=== PATIENT | male | born 1960 | race Caucasian/White ===

== ENCOUNTER 2023-07-28 11:11 | Emergency (ER) | payer OTHER ==
[~2023-07-28] VITALS: Ht 175.3 cm; Wt 68.0 kg
[2023-07-28 11:26] VITALS: BP_SYST 119; PULSE 90; RESP 16; TEMP 97.8; O2SAT 98
[2023-07-28 11:30] VITALS: BP_SYST 119; PULSE 85; RESP 14; TEMP 98.4; O2SAT 97
[2023-07-28] MEDS ORDERED: TRAM50TA2 PO (12:24)
[2023-07-28] MEDS ORDERED: NAPR-688 PO (12:24)
[2023-07-28] MEDS: KETOROLAC TROMETHAMINE 60 MG/2 ML VIAL IM ONE (12:45)
== END 2023-07-28 13:24 | disposition home or self-care (01) ==
LOC: SED 11:11
DX: M54.50 Low back pain, unspecified (principal); Z79.899 Other long term (current) drug therapy
CPT/HCPCS: 99283; 96372; J1885